=== PATIENT | male | born 1950 | race Two or more races ===

== ENCOUNTER 2025-02-28 14:31 | Emergency (ER) | payer MEDICARE, SELFPAY ==
--- NOTE | 2025-02-28 14:35 | EKG_ITS ---
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: : 1950 Requested By: Bong Morin (DAVY) Order Number: [id number] Reading MD: Bong Morin (CATERING SOUS CHEF) Measurements Intervals [place] Rate: 118 P: 34 LA: 132 QRS: 0 QRSD: 75 T: 73 QT: 332 QTc: 466 Interpretive Statements SINUS TACHYCARDIA WITH OCCASIONAL SUPRAVENTRICULAR PREMATURE COMPLEXES LOW QRS VOLTAGE IN PRECORDIAL LEADS [QRS DEFLECTION < 1.0 mV IN CHEST LEADS] INFERIOR MYOCARDIAL INFARCTION , PROBABLY OLD [40+ ms Q WAVE AND/OR ST/T ABNORMALITY IN II/aVF] MODERATE T-WAVE ABNORMALITY, CONSIDER LATERAL ISCHEMIA [-0.1+ mV T-WAVE IN I/aVL/V5/V6] No previous ECG available for comparison /store/S0/[id number]/ecg/[id number].pdf
[2025-02-28 14:41] VITALS: BP 162/75; PULSE 116; RESP 18; TEMP 36.9; O2SAT 95; BMI 35.5
--- NOTE | 2025-02-28 14:47 | XR_ITS ---
Examination: PA lateral chest 2 views TECHNIQUE: Upright PA lateral chest 2 views Date and time: February 28, 2025 1449 hours INDICATIONS: Acute chest pain today. FINDINGS: Normal heart size No lobar pneumonia or pulmonary edema Prominent osteopenia IMPRESSION: No pneumonia or pulmonary edema
--- NOTE | 2025-02-28 14:48 | PD.EDRME ---
Rapid Medical Screening Exam RME Arrival date/time: 02/28/25 14:31 74-year-old male presents emergency dept today stating was working outside today and suddenly became fatigued patient saw the primary care doctor referred him to the ER Chief Complaint: Arrhythmia/Palpitations Time Seen by Provider: 02/28/25 14:41 Vital signs: Vital Signs Temperature 98.5 F 02/28/25 14:41 Pulse Rate 116 H 02/28/25 14:41 Respiratory Rate 18 02/28/25 14:41 Blood Pressure 162/75 H 02/28/25 14:41 Pulse Oximetry (%) 95 02/28/25 14:41 Oxygen Delivery Method Room Air 02/28/25 14:41
[2025-02-28 15:15] LABS: Basophils % (Auto) 1 % (0-2.5); Eosinophils # (Auto) 0.1 Thou/mm3 (0.0-0.5); Eosinophils % (Auto) 1 % (0-10); Hematocrit 42.5 % (41.0-53.0); Hemoglobin 14.7 g/dL (13.5-16.0); Immature Granulocytes % (Auto) 0 % (0-0); Immature Granulocytes Auto 0.02 Thou/mm3 (0.00-0.00); Lymphocytes # (Auto) 2.5 Thou/mm3 (1.0-4.8); Lymphocytes % (Auto) 32 % (10-50); Mean Corpuscular HGB Conc 34.6 g/dl (31.0-37.0); Mean Corpuscular Hemoglobin 31.2 pg (25.0-35.0); Mean Corpuscular Volume 90 fL (80-100); Monocytes # (Auto) 0.7 Thou/mm3 (0.0-0.8); Monocytes % (Auto) 10 % (0-12); Neutrophils # (Auto) 4.3 Thou/mm3 (1.8-7.7); Neutrophils % (Auto) 56 % (37-80); Nucleated Red Blood Cell % 0 /100 WBC (0); Platelet Count 242 Thou/mm3 (140-440); RDW Standard Deviation 48.1 fL (35.1-43.9); Red Blood Count 4.71 Miln/mm3 (4.50-5.90); White Blood Count 7.7 Thou/mm3 (3.8-10.6)
[2025-02-28 15:28] LABS: Collection Type, Urine Clean Catch
[2025-02-28 15:35] LABS: B-Type Natriuretic Peptide 85 pg/mL (0-100)
[2025-02-28 15:36] LABS: Bacteria,Urine Rare; Bilirubin,Urine Negative (Negative); Blood,Urine Trace (Negative); Clarity,Urine Clear (Clear/Hazy); Color,Urine Lt-Yellow (Lt Yel-Yel); Glucose, Urine Negative (Negative); Hyaline Casts,Urine 1 /hpf (0-1); Ketones,Urine Negative (Negative); Leukocyte Esterase,Urine Negative (Negative); Nitrite,Urine Negative (Negative); PH,Urine 5.5 (5.0-7.0); Protein,Urine Negative (Neg - Trace); RBC,Urine 4 /hpf (0-3); Specific Gravity,Urine 1.019 (1.001-1.035); Squamous Epithelial Cell,Urine < 1 /hpf (0-5); Urobilinogen,Urine Negative mg/dL (0.0-1.0); WBC,Urine 1 /hpf (0-5)
[2025-02-28 15:37] LABS: Alanine Aminotransferase 13 U/L (10-49); Albumin, Serum 4.5 gm/dL (3.4-4.8); Albumin/Globulin Ratio 1.6 (1.2-2.2); Alkaline Phosphatase 83 U/L (46-116); Anion Gap 8 (7-16); Aspartate Amino Transferase 23 U/L (0-34); BUN/Creatinine Ratio 14 Ratio (12-20); Bilirubin,Total 0.5 mg/dL (0.3-1.2); Blood Urea Nitrogen 17 mg/dL (9-23); Calcium 9.6 mg/dL (8.3-10.6); Calcium (Corrected) 9.6 mg/dL (8.5-10.1); Carbon Dioxide 28.7 mMol/L (20.0-31.0); Chloride 105 mMol/L (98-107); Creatinine (Component) 1.2 mg/dL (0.6-1.3); Estimated Creatinine Clearance 58.7 mL/min (>60); Globulin 2.8 gm/dL (2.3-3.5); Glucose 136 mg/dL (74-106); Magnesium 2.3 mg/dL (1.6-2.6); Osmolality,Calculated 286 (275-295); Potassium 3.9 mMol/L (3.4-5.1); Sodium 142 mMol/L (136-145); Total Protein 7.3 gm/dL (5.7-8.2); Troponin I < 0.020 ng/mL (0.0-0.045); eGFR > 60 See Note
[2025-02-28 20:22] VITALS: BP 162/82; PULSE 92; RESP 18; TEMP 37; O2SAT 95
--- NOTE | 2025-02-28 20:38 | PD.EDWEAK ---
ED Weakness RME/HPI General Chief complaint: Arrhythmia/Palpitations Stated complaint: Heart rate high, BP low, tired and dizzy Time Seen by Provider: 02/28/25 14:41 Arrival date/time: 02/28/25 14:31 RME / HPI RME / HPI Narrative: 02/28/25 14:31 74-year-old male presents emergency dept today stating was working outside today and suddenly became fatigued patient saw the primary care doctor referred him to the ER DR DASILVA MAIN ED EVALUATION: 74 y/o male with Hx of Hypercholesterolemia, Hypertension, Obesity, and Diabetes Mellitus Type 2 presents to ED c/o weakness, low blood pressure, elevated heart rate, and some shortness of breath x 1 day. Patient was working on a room inside of his house, showered, then began to feel weak and tired. Patient saw PCP earlier today and was advised to come to ED due to a blood pressure of 90/60 and heart rate of 118. Patient denies dizziness or any other associated symptoms or aggravating factors. No modifying factors, no radiation, no migration. No pain reported overall. No other concerns or complaints expressed at this time. Related Data Home Medications ?Medication ?Instructions ?Recorded ?Confirmed atorvastatin 10 mg tablet (Lipitor) 10 mg PO DAILY ##0 08/27/10 02/14/19 pioglitazone 30 mg tablet (Actos) 30 mg PO DAILY ##0 08/27/10 02/14/19 ramipril 10 mg capsule (Altace) 10 mg PO DAILY ##0 08/27/10 02/14/19 tamsulosin 0.4 mg capsule (Flomax) 0.4 mg PO DAILY ##0 08/27/10 02/14/19 Previous Rx's ?Medication ?Instructions ?Recorded acetaminophen 500 mg tablet 500 mg PO QID PRN fever or pain 06/11/21 (Tylenol Extra Strength) #30 tabs azithromycin 250 mg tablet See Rx Instructions PO .COMPLEX #6 06/11/21 tabs hydrocodone 5 mg-acetaminophen 325 1 tab PO BID PRN pain #8 tabs 24/23 mg tablet Allergies Allergy/AdvReac Type Severity Reaction Status Date / Time No Known Allergies Allergy Verified 02/28/25 14:35 Review of Systems Review of Systems Systems Reviewed: All systems reviewed, normal except as documented Past Medical History Past Medical History CARDIAC: Positive Hypercholesterolemia and Hypertension GASTROINTESTINAL: Positive Obesity ENDOCRINE: Positive Diabetes Mellitus Type 2 PSYCHO/SOCIAL: Positive Depression ED Exam Narrative Physical exam: GENERAL APPEARANCE: alert and oriented x 4, well-developed, well-nourished, no acute distress VITALS: All vitals were reviewed and the pulse ox is 95% on room air, which is normal according to my interpretation. HEENT: Normocephalic, atraumatic; pupils equal, round, reactive to light; EOMI; mucous membranes pink, moist; oropharynx clear NECK: Supple LUNGS: CTABL; no wheezes, no rales, no rhonchi HEART: Regular rate, regular rhythm; normal S1, S2; no murmurs ABDOMEN: non distended; normal BS; soft, no tenderness, no guarding, no rebound; no masses, no organomegaly, no hernia BACK: no CVA tenderness EXTREMITIES: atraumatic; no edema NEUROLOGIC: awake; alert and oriented x4; cranial nerves II-XII grossly intact; no focal sensory or motor deficits PSYCHIATRIC: appropriate mood and affect SKIN: warm, dry, normal color; no rashes Course Course Course Narrative: CXR is ordered for determining the etiology of shortness of breath. Quality Measures none Orders Category Date Time Status EKG (ED ONLY) *Do not use* NOW Care 02/28/25 14:35 Completed EKG (ED Only) Stat Exams 02/28/25 14:35 Draft XR chest 2V Stat Exams 02/28/25 14:47 Completed B-Type Natriuretic Peptide Stat Lab 02/28/25 15:03 Completed CBC Stat Lab 02/28/25 15:03 Completed Comprehensive Metabolic Panel Stat Lab 02/28/25 15:03 Completed Magnesium Stat Lab 02/28/25 15:03 Completed Troponin I Stat Lab 02/28/25 15:03 Completed Urinalysis Stat Lab 02/28/25 15:21 Completed Vital Signs Vital signs: Vital Signs Temperature 98.5 F 02/28/25 14:41 Pulse Rate 116 H 02/28/25 14:41 Respiratory Rate 18 02/28/25 14:41 Blood Pressure 162/75 H 02/28/25 14:41 Pulse Oximetry (%) 95 02/28/25 14:41 Oxygen Delivery Method Room Air 02/28/25 14:41 Weakness MDM Narrative MDM Narrative:: Scribe Attestation: I, Moniecarlo Thorne, am scribing for and in the presence of Dr. Dasilva. Provider Notation: Although this document has been carefully reviewed, there may still be some phonetic and other typographical errors.? These errors are purely grammatical due to imperfections in the software program and should not be construed in any way to? compromise the substance of the patient's medical care during this visit. Patient data External records reviewed:: [facility] previous records (Reviewed prior ED records from 08/29/23. Patient was seen for Lumbar radiculopathy.) Clinical information provided by:: patient Social determinants that could affect healthcare access:: none Patient has the following chronic illnesses:: Hypercholesterolemia, Hypertension, Obesity, Diabetes Mellitus Type 2, Depression How is presenting disease/condition affected by chronic disease/condition?: exacerbated by Evaluation data The following diagnostics were reviewed and interpreted by me:: lab results, radiology exam(s) and EKG tracing(s) (EKG manual reading, my interpretation: sinus tachycardia, rate: 118 bpm, Q-waves in III and V3.) Lab and/or radiology exams considered but not ordered:: None Interpretation Summary: RADIOLOGY Chest X-Ray: Patient: RASHMI BROTHERS Record#: [id number] Birthdate: 1950 Age/Sex: 74 / M Location: [facility] Attending Dr: Ordering Physician: Patience (DAVY)Bong NP Date of Service: 02/28/25 Procedure(s): XR chest 2V Accession Number(s): [id number] cc: Patience TRUJILLO)Bong NP; Jacek Ferguson MD~ Examination: PA lateral chest 2 views TECHNIQUE: Upright PA lateral chest 2 views Date and time: February 28, 2025 1449 hours INDICATIONS: Acute chest pain today. FINDINGS: Normal heart size No lobar pneumonia or pulmonary edema Prominent osteopenia IMPRESSION: No pneumonia or pulmonary edema Dictated By: Jacek Ferguson MD Signed By: <Electronically signed by Jacek Ferguson MD in OV> 02/28/25 1513 Medications / Prescriptions Medications or Prescriptions considered but not ordered:: None Medication administrations:: See above Consultations Consultation(s) initiated? (list below): No Diagnosis Weakness Differential Diagnosis: acute myocardial infarction, anemia, hypoglycemia, hypothyroidism, rhabdomyolysis, sepsis and dehydration Most likely diagnosis given after review of the tests above:: Microscopic hematuria, low blood pressure. Admission Indicated Admission indicated?: not indicated Explain why admission is indicated or not indicated:: Patient does not meet admission criteria. Admission Request Was there a request for admission?: No Disposition Plan Disposition Plan: Discharge Discharge Attestation Discharge Attestation: The patient and all family members were given an opportunity to ask questions and understood the discharge instructions. Discharge instructions specifically effects, indications for sooner follow up or return to the emergency department, and the expected course of current diagnosis. Patient condition: Stable Discharge Plan Plan Patient Disposition: HOME (Self Care) Prescriptions/Referrals Prescriptions/Med Rec: No Action atorvastatin [Lipitor] 10 MG tablet 10 mg PO DAILY Qty: 0 tamsulosin [Flomax] 0.4 MG capsule,extended release 24hr 0.4 mg PO DAILY Qty: 0 pioglitazone [Actos] 30 MG tablet 30 mg PO DAILY Qty: 0 ramipril [Altace] 10 MG capsule 10 mg PO DAILY Qty: 0 azithromycin 250 mg tablet See Rx Instructions .ROUTE .COMPLEX Qty: 6 0RF Rx Instructions: take 500 mg today (day 1), then 250 mg for 4 days (days 2-5) acetaminophen [Tylenol Extra Strength] 500 mg tablet 500 mg PO QID PRN (Reason: fever or pain) Qty: 30 0RF hydrocodone-acetaminophen 5-325 mg tablet 1 tab PO BID MDD 10 PRN (Reason: pain) Qty: 8 0RF Referrals: Chidi Manley MD [Primary Care Provider] - In 1 week Problem List Clinical Impression: Low blood pressure, Microscopic hematuria Patient/Caregiver Discharge Instructions Education Materials: ED Heat Exhaustion, ED Hematuria, ED Low Blood Pressure, All Causes Additional Instructions: You may have suffered from some mild heat exhaustion. When working in the heat be sure to drink plenty of cool fluids. A microscopic amount of blood was noted in your urine. Follow up with your primary care doctor to recheck urine studies. Print Language: [employer] Stand Alone Forms: Natali Award Info., Patient Portal Info Letter
== END 2025-02-28 20:41 | disposition home or self-care (01) ==
PROVIDERS: Nurse Practitioner Primary Care; Emergency Provider Emergency Medicine; PCP Family Medicine
DX: R03.1 Nonspecific low blood-pressure reading (principal); R31.29 Other microscopic hematuria; R07.9 Chest pain, unspecified; I49.1 Atrial premature depolarization; E78.00 Pure hypercholesterolemia, unspecified; I10 Essential (primary) hypertension
CPT/HCPCS: 36415; 71046; 80053; 81001; 83735; 83880; 84484; 85025; 93005; 99283